=== PATIENT | male | born 1965 | race Caucasian/White ===

== ENCOUNTER 2023-10-17 23:25 | Emergency (ER) | payer OTHER ==
[~2023-10-17] VITALS: Ht 218.4 cm; Wt 122.7 kg
[2023-10-17 23:57] VITALS: TEMP 97.4
[2023-10-18] MEDS ORDERED: OxyCODONE HCL/ACETAMINOPHEN 5-325 MG TABLET PO ONE (01:00)
[2023-10-18] MEDS ORDERED: KETOROLAC TROMETHAMINE 60 MG/2 ML VIAL IM ONE (01:00)
[2023-10-18 02:15] VITALS: BP 130/78; PULSE 82; RESP 16
[2023-10-18] MEDS ORDERED: PERCT PO ×4 (04:30→04:45)
== END 2023-10-18 04:20 | disposition home or self-care (01) ==
LOC: EMS 23:27
DX: G89.29 Other chronic pain (principal); M25.552 Pain in left hip; F10.20 Alcohol dependence, uncomplicated; F17.210 Nicotine dependence, cigarettes, uncomplicated; Y90.9 Presence of alcohol in blood, level not specified
CPT/HCPCS: 99283; 96372; J1885